=== PATIENT | male | born 1970 | race Caucasian/White ===

== ENCOUNTER 2017-05-27 09:54 | Observation (INO) ==
[2017-05-27 10:14] LABS: Basophils % 0.4 %; Eosinophils # 0.1 K/mcL (0.0-0.6); Hematocrit 44.5 % (37.5-50.1); Immature Granulocytes % 0.3 % (0-4); Lymphocytes # 1.9 K/mcL (0.6-4.6); Lymphocytes % 24.5 %; Mean Corpuscular HGB Conc 33.7 g/dL (31.6-35.5); Mean Corpuscular Hemoglobin 29.4 pg (28.0-33.3); Mean Corpuscular Volume 87.1 fL (83.0-100.0); Mean Platelet Volume 9.8 fL (9.4-12.4); Monocytes # 0.5 K/mcL (0.0-1.3); Monocytes % 6.6 %; Neutrophils # 5.3 K/mcL (1.6-8.9); Platelet Count 234 K/mcL (140-400); Red Blood Count 5.11 M/mcL (4.19-5.50); Red Cell Distribution Width 13.2 % (11.5-14.5); Segmented Neutrophils % 67.2 %
[2017-05-27 10:24] LABS: Prothrombin Time 10.9 Seconds (9.4-12.1)
[2017-05-27 10:27] LABS: Activated Partial Thrombo Time 30.9 Seconds (26.0-36.0)
[2017-05-27 10:28] LABS: BUN/Creatinine Ratio 10 (6-26); Blood Urea Nitrogen 9 mg/dL (6-20); Carbon Dioxide 26 mEq/L (23-29); Chloride 109 mEq/L (98-107); Glucose 111 mg/dL (70-105); Osmolality,Calculated 285 (280-300); Potassium 3.7 mEq/L (3.5-5.1); Sodium 138 mEq/L (136-145); eGFR For African Americans > 60 (> 60); eGFR For Non-African Americans > 60 (> 60)
[2017-05-27] MEDS ORDERED: Aspirin 81 MG TAB.CHEW PO ONE (10:29)
[2017-05-27] MEDS ORDERED: Nitroglycerin 0.4 MG TAB.SUBL SL PRN (11:04)
--- NOTE | 2017-05-27 11:16 | Emergency Department Note ---
Disposition Clinical Impression: Chest pain Qualifiers: Chest pain type: other chest pain Qualified Code(s): R07.89 - Other chest pain Disposition: Admitted As Inpatient Condition: Good Chest Pain HPI - General Chief Complaint: ED Chest Pain Stated Complaint: CP Time Seen by Provider: 05/27/17 10:00 Source: patient Mode of arrival: private vehicle Limitations: no limitations Vital Signs Reviewed: Yes Nursing Notes Reviewed: Yes - History of Present Illness HPI Narrative: 46-year-old male history of hypertension, prior left heart catheterization in 2011 without stent placement who presents to the ER due to chest pain. Patient reports he has had intermittent chest pain for the last 2 weeks worse with exertion. Also states she has been short of breath during that time. He reports today the pain intensified even at rest. He states he has had pain that goes into his back as well as up into his jaw and left arm. No history of DVT or PE. No history of [place], stent. No other complaints. Pt complaint: chest pain Onset (ago): day(s) Duration: intermittent Onset: during exertion Pain Location: left chest Severity: severe Severity scale (1-10): 8 Quality: sharp Pain Radiation: LUE, neck Improves with: rest Worsens with: exertion Associated symptoms: Reports: nausea, dyspnea. Denies: vomiting Treatments prior to arrival chest pain: none - Related Data On Oral Contraceptives: No Home Medications Medication Instructions Recorded Confirmed Metoprolol [Lopressor] 25 mg PO BID 04/16/16 05/27/17 Aspirin Enteric Coated [Aspirin EC] 81 mg PO DAILY 05/27/17 05/27/17 Ibuprofen [Motrin] 800 mg PO Q8H PRN 05/27/17 05/27/17 Tizanidine HCl [Zanaflex] 4 mg PO BID 05/27/17 05/27/17 Previous Rx's Medication Instructions Recorded Atorvastatin Calcium [Lipitor] 20 mg PO HS #30 tablet 05/28/17 Varenicline Tartrate [Chantix 1 each PO AD #1 dosepack 05/28/17 Starting Month MAC] Allergies Allergy/AdvReac Type Severity Reaction Status Date / Time morphine AdvReac Nausea Verified 05/27/17 09:56 naproxen AdvReac Nausea Verified 05/27/17 09:56 All systems ED: reviewed and negative except as stated. Cardiovascular: Reports: chest pain, dyspnea on exertion Respiratory: Reports: dyspnea. Denies: cough Gastrointestinal: Reports: nausea. Denies: abdominal pain, vomiting, diarrhea Musculoskeletal: Reports: back pain, neck pain Chest Pain PMH - Past Medical History Medical history: Reports: asthma, coronary artery disease, hypertension, myocardial infarction, other Psychiatric history: Reports: anxiety - Social History Smoking Status: Current every day smoker Alcohol use: Reports: none Drug use: Reports: none Physical Exam - General Limitations: no limitations General appearance: alert, in no apparent distress - Head Head exam: atraumatic, normocephalic - Eye Eye exam: Present: normal appearance - ENT ENT exam: normal exam - Neck Neck exam: Present: normal inspection, full ROM - Chest Chest inspection: Present: normal inspection, symmetric chest wall rise - Respiratory Respiratory exam: Present: normal lung sounds bilaterally - Cardiovascular Cardiovascular exam: Present: regular rate, normal rhythm, normal heart sounds - Abdominal Exam Abdominal exam: Present: soft, Non-Tender. Absent: tenderness - Extremities Exam Extremities exam: Present: normal inspection, full ROM - Expanded Upper Extremity Exam Shoulder exam: Present: normal inspection, full ROM Arm exam: Present: normal inspection, full ROM Elbow exam: Present: normal inspection, full ROM Forearm/Wrist exam: Present: normal inspection, full ROM Hand exam: Present: normal inspection, full ROM - Expanded Lower Extremity Exam Hip/Pelvis exam: Present: normal inspection, full ROM Upper leg exam: Present: normal inspection, full ROM Knee exam: Present: normal inspection, full ROM Lower leg exam: Present: normal inspection, full ROM Ankle exam: Present: normal inspection, full ROM Foot/toe exam: Present: normal inspection, full ROM - Neurological Exam Neurological exam: Present: alert, other (GCS 15. Nonfocal.) - Skin Skin exam: Present: warm, dry, intact Course Course Narrative: Patient seen and examined. Vitals reviewed. We will obtain EKG, chest x-ray and labs including troponin. Aspirin and nitroglycerin ordered. Vital Signs Temperature 97.9 F 05/27/17 09:56 Pulse Rate 76 05/27/17 09:56 Respiratory Rate 18 05/27/17 09:56 Blood Pressure 178/93 05/27/17 09:56 O2 Sat by Pulse Oximetry 99 05/27/17 09:56 Temperature 98.1 F 05/28/17 12:21 Pulse Rate 73 05/28/17 12:21 Respiratory Rate 17 05/28/17 12:21 Blood Pressure 163/93 05/28/17 12:21 O2 Sat by Pulse Oximetry 97 05/28/17 12:21 Oxygen Delivery Oxygen Delivery Room Air Chest Pain - MDM Narrative Medical decision making narrative: 46-year-old male presents to the ER due to chest pain. Prior history of left heart catheterization without stent placed. EKG is nonischemic. Chest x-ray unremarkable. Initial troponin is within normal limits. He is describing exertional dyspnea. He feels better after nitroglycerin. Patient admitted the hospitalist service for chest pain rule out. - Lab Data Lab results reviewed: Yes I reviewed the patient's lab results. Result diagrams: 05/28/17 00:24 05/28/17 00:24 Lab Results 05/27/17 05/27/17 05/27/17 Range/Units 10:08 10:08 10:08 WBC 7.8 (4.3-11.1) K/mcL RBC 5.11 (4.19-5.50) M/mcL Hgb 15.0 (12.9-16.9) g/dL Hct 44.5 (37.5-50.1) % MCV 87.1 (83.0-100.0) fL MCH 29.4 (28.0-33.3) pg MCHC 33.7 (31.6-35.5) g/dL RDW 13.2 (11.5-14.5) % Plt Count 234 (140-400) K/mcL MPV 9.8 (9.4-12.4) fL Immature Gran % 0.3 (0-4) % Seg Neutrophils % 67.2 % Lymphocytes % 24.5 % Monocytes % 6.6 % Eosinophils % 1.0 % Basophils % 0.4 % Neutrophils # 5.3 (1.6-8.9) K/mcL Lymphocytes # 1.9 (0.6-4.6) K/mcL Monocytes # 0.5 (0.0-1.3) K/mcL Eosinophils # 0.1 (0.0-0.6) K/mcL Basophils # 0.0 (0.0-0.2) K/mcL PT 10.9 (9.4-12.1) Seconds INR 1.0 APTT 30.9 (26.0-36.0) Seconds Sodium (136-145) mEq/L Potassium (3.5-5.1) mEq/L Chloride (98-107) mEq/L Carbon Dioxide (23-29) mEq/L BUN (6-20) mg/dL Creatinine (0.70-1.30) mg/dL Est GFR ( Amer) (> 60) Est GFR (Non-Af Amer) (> 60) BUN/Creatinine Ratio (6-26) Glucose (70-105) mg/dL Calculated Osmolality (280-300) Calcium (8.6-10.3) mg/dL Troponin I (< 0.04) ng/mL B-Natriuretic Peptide 26 (Less than 100) pg/mL 05/27/17 05/27/17 Range/Units 10:08 10:08 WBC (4.3-11.1) K/mcL RBC (4.19-5.50) M/mcL Hgb (12.9-16.9) g/dL Hct (37.5-50.1) % MCV (83.0-100.0) fL MCH (28.0-33.3) pg MCHC (31.6-35.5) g/dL RDW (11.5-14.5) % Plt Count (140-400) K/mcL MPV (9.4-12.4) fL Immature Gran % (0-4) % Seg Neutrophils % % Lymphocytes % % Monocytes % % Eosinophils % % Basophils % % Neutrophils # (1.6-8.9) K/mcL Lymphocytes # (0.6-4.6) K/mcL Monocytes # (0.0-1.3) K/mcL Eosinophils # (0.0-0.6) K/mcL Basophils # (0.0-0.2) K/mcL PT (9.4-12.1) Seconds INR APTT (26.0-36.0) Seconds Sodium 138 (136-145) mEq/L Potassium 3.7 (3.5-5.1) mEq/L Chloride 109 H (98-107) mEq/L Carbon Dioxide 26 (23-29) mEq/L BUN 9 (6-20) mg/dL Creatinine 0.91 (0.70-1.30) mg/dL Est GFR ( Amer) > 60 (> 60) Est GFR (Non-Af Amer) > 60 (> 60) BUN/Creatinine Ratio 10 (6-26) Glucose 111 H (70-105) mg/dL Calculated Osmolality 285 (280-300) Calcium 9.0 (8.6-10.3) mg/dL Troponin I < 0.03 (< 0.04) ng/mL B-Natriuretic Peptide (Less than 100) pg/mL - Radiology Data Radiology results reviewed: Yes I reviewed the patient's radiology results. Chest X-Ray 05/27/17 10:00 IMPRESSION: No acute cardiopulmonary process D/ / 05/27/2017 10:47:32 Sha Bingham MD / bin Interpreting Provider: Sha Bingham MD - EKG Data EKG attestation: Yes I reviewed and interpreted this EKG. EKG results narrative: EKG demonstrates sinus rhythm with rate of 60 bpm. Normal axis. Normal intervals. Normal R-wave progression. No gross ST elevations or depressions. No acute ischemic findings. No significant changes from previous EKG dated . Heart Score - Score History: Moderately Suspicious EKG: Normal Age: 45-65 Risk Factors: 1-2 risk factors Troponin: Less than normal limit HEART Score Total: 3 S.B.A.R. - S.B.A.R. Situation: Demographics, MOA Background: Presenting Complaint, Relevant PMH, Meds, & Allergies Assessment: Vital Signs, Course and respsone to treatment, Exam Concerns, Patient/Family Expectation, Pertinant Lab Results Recommendation: Barrier(s) to disposition, Recommendation based on pending studies, treatments, or consults S.B.A.R. Report Given to: Dr. Leiva S.B.A.RRenata Repor Time: 13:37 Attestation Statement - Attestation Attestation: I examined this patient and my medical decision-making was reviewed with the Resident Physician, Dr. Tejada. I agree with the documented findings, disposition and treatment plan as described except to the extent set forth below. Pt is a 46 yo wm, with hx HTN, with prior LHC without PCI, who presents with c/ o intermittent CP, L sided radiating through to his back/neck/jaw without other sxs x 2 weeks intermittently, seems provoked by exertion. I agree with pt's PE findings. Elevated BP on arrival. Pt given ASA/nitro. EKG NSR with no ischemia. CXR wnl. Labs, including trop neg. Will admit for further evaluation for CP, elev BP.
[2017-05-27] MEDS ORDERED: Naloxone 0.4 MG/ML INJ IVP PRN (15:53)
[2017-05-27] MEDS ORDERED: Ondansetron 4 MG/2 ML VIAL IVP PRN (15:53)
[2017-05-27] MEDS ORDERED: *HR* HYDROcodone/Acet 5/325 mg TABLET PO PRN (15:53)
[2017-05-27] MEDS ORDERED: Acetaminophen 325 MG TABLET PO PRN (15:53)
--- NOTE | 2017-05-27 16:03 | Internal Med History&Physical ---
<John Becker - Last Filed: 05/27/17 16:57> Date of Encounter: 05/27/17 Time of Encounter: 15:00 Assessment and Plan (1) Chest pain Current visit: Yes Status: Acute Acute on chronic chest pain that pt. states has been occurring for the past 3 weeks and became much worse this morning. Pain was accompanied by shortness of breath and feelings of presyncope. Patient states chest pain was located under left pectoral with radiation to left shoulder, arm, back, neck, and jaw. Patient states he was given 1 nitroglycerin in the ED which helped. Reports chest pain with and without exertion. Denies history of DVT or PE. Patient is currently smoking 1 pack per day. Otherwise factors include hypertension, CAD, and previous NC. Initial troponin <0.03. Will trend x2. Echocardiogram ordered. Continuous cardiac telemetry. NPO at midnight for a.m. nuclear pharm stress test. Supplemental O2 w/titration and SpO2 monitoring PRN. Nitroglycerin PRN. Continue pts. Metoprolol and aspirin therapy. We will add Lipitor 40 mg now and continue 20 mg Lipitor tomorrow at bedtime. Will consider cardiology consult if troponin/echo/stress test results abnormal. Lipid panel in a.m. labs. Pt. discussed w/Dr. Leiva who agrees w/plan of care. Pt. is high risk for cardiac event based on previous NC, current sx, hx, and risk factors. Observation. Qualifiers: Chest pain type: other chest pain Qualified Code(s): R07.89 - Other chest pain; R07.8 - Other chest pain (2) CAD (coronary artery disease) Current visit: Yes Status: Chronic Hx of chronic CAD w/previous NC in 2011 and angioplasty w/o stent placement. Will continue pts. metoprolol and aspirin therapy. Continuous cardiac telemetry. Lipid panel in a.m. labs. A1c in a.m. labs. Qualifiers: Coronary Disease-Associated Artery/Lesion type: [place] artery [place] vs. transplanted heart: [place] heart Associated angina: angina presence unspecified Qualified Code(s): I25.10 - Atherosclerotic heart disease of [place] coronary artery without angina pectoris (3) HTN (hypertension) Current visit: Yes Status: Chronic Hx of chronic HTN. Monitor pt. and VS. Continue pts. metoprolol. Qualifiers: Hypertension type: essential hypertension Qualified Code(s): I10 - Essential (primary) hypertension (4) Tobacco abuse Current visit: Yes Status: Chronic Hx of chronic tobacco abuse. Pt. reports smoking 1 PPD. Pt. counseled on dangers of tobacco abuse on cardiac sx. Pt. not ready to quit at this time. Denies need for nicotine patch. (5) Previous myocardial infarction older than 8 weeks Current visit: Yes Status: Resolved Hx of previous NC in 2012 w/angioplasty and no stent placement. Pt. reports there were two blockages found but they were not severe enough to stent. Continuous cardiac telemetry. Continue metoprolol and aspirin therapy. (6) DVT prophylaxis Current visit: Yes Status: Acute Lovenox 40 mg 0600 daily for DVT prophylaxis. Monitor pt. for signs of bleeding. Internal Medicine - H&P: HPI Chief complaint: Chest pain Admitted From: Emergency Dept Plans for Post Hospital Care: Home History of present illness: Mr. Kraft is a 46 year old male with medical hx of asthma, CAD, HTN, and previous myocardial infarction in 2011 resulting in left heart catheterization without stent placement presents from the ED with chief complaint of chest pain for the past 3 weeks. Patient states pain became much worse this morning and was accompanied by SOB and presyncope. Patient states pain was centralized under the left pectoral with radiation to the left shoulder, arm, back, neck, jaw. Pt. reports hx of chest pain w/similar sx. Reports two blockages found in 2011 but were not severe enough for stents. CP occurs w/wo exertion. Last reported stress test in 2011. Pt. given 1 nitro which he states helped w/pain. Pt. denies numbness, cough, fever, chills, nausea, vomiting, changes in vision, headache, palpitations, abdominal pain, diarrhea, constipation, dizziness, or syncope. Past Med Surg Social Fam HX - Past Medical History Source: patient, old records reviewed Medical history: asthma, coronary artery disease, hypertension, myocardial infarction (2012 w/angioplasty but no stent placement), other Psychiatric history: anxiety - Social History Smoking Status: Current every day smoker Packs per day: 1 PPD Smokeless Tobacco Status: No Alcohol use: none Drug use: none Current living situation: Home, With Family Activity Level: Independent ambulation Recent Out of Country Travel Within the Last 8 Weeks: No Exposure or Possible Exposure to Illness During Travel: No - Family History Father Race: Family Member Ethnicity: Non- Age at : 63 Cause of : NC Hx Family Cardiac Disorders: Yes (NC, CAD) Mother Race: Family Member Ethnicity: Non- Living Status: Still Living Hx Family Cardiac Disorders: Yes (NC x2, CAD) Sister Race: Family Member Ethnicity: Non- Living Status: Still Living Hx Family Medical Disorders: No Grandfather Race: Family Member Ethnicity: Non- Living Status: Hx Family Endocrine Disorder: Yes (DM) Internal Medicine - H&P: Meds Metoprolol [Lopressor] 25 mg PO BID 04/16/16 [History] Aspirin Enteric Coated [Aspirin EC] 81 mg PO DAILY 05/27/17 [History] Ibuprofen [Motrin] 800 mg PO Q8H PRN 05/27/17 [History] Tizanidine HCl [Zanaflex] 4 mg PO BID 05/27/17 [History] 3 Allergy/AdvReac Type Severity Reaction Status Date / Time morphine AdvReac Nausea Verified 05/27/17 09:56 naproxen AdvReac Nausea Verified 05/27/17 09:56 All Systems PM: A 10-system review of systems was performed and is negative for pertinent findings except as documented above in the HPI. - Constitutional Constitutional: no chills, no fever(s), no night sweats - EENT Eyes: no change in vision, no discharge, no pain, no photophobia Ears: no ear discharge, no ear pain, no tinnitus Nose, mouth and throat: no dysphagia, no nasal discharge, no neck pain, no sore throat - Breasts Breasts: as per HPI - Cardiovascular Cardiovascular ROS IM: as per HPI, chest pain, dyspnea, dyspnea on exertion, other (Pre-syncope), no diaphoresis, no lightheadedness, no palpitations, no syncope - Respiratory Respiratory: as per HPI, dyspnea, dyspnea on exertion, no cough, no wheezing, no excessive phlegm production - Gastrointestinal Gastrointestinal: no abdominal pain, no diarrhea, no hematemesis, no hematochezia, no melena, no nausea, no vomiting - Genitourinary Genitourinary ROS male: as per HPI - Musculoskeletal Musculoskeletal ROS IM: no numbness, no tingling - Integumentary Integumentary IM: no rash, no unusual bruising - Neurological Neurological ROS: no confusion, no convulsions, no focal weakness, no numbness, no tingling, no tremor(s) - Psychiatric Psychiatric: as per HPI - Endocrine Endocrine IM: as per HPI - Hematologic/Lymphatic Hematologic/Lymphatic: no easy bruising - Allergic/Immunologic Allergic/Immunologic: as per HPI - Constitutional Vitals: Temp Pulse Resp BP Pulse Ox 99.1 F 70 16 123/79 96 05/27/17 15:02 05/27/17 15:02 05/27/17 15:02 05/27/17 15:02 05/27/17 15:02 General appearance: Present: cooperative, A&O X 3, pleasant, no acute distress, answers questions appropriately - Head Head exam: Present: normal inspection - Eye Eye exam: Present: PERRL, conjuntiva pink, sclera anicteric Pupils: Present: PERRL - ENT ENT exam: Present: normal exam - Neck Neck exam general surgery: Present: normal inspection, supple, trachea midline. Absent: lymphadenopathy - Respiratory Respiratory exam: Present: CTAB. Absent: accessory muscle use, rales, rhonchi, wheezes - Cardiovascular Cardiovascular exam: Present: RRR, +S1, +S2. Absent: diastolic murmur, gallop, rubs, systolic murmur - GI/Abdominal GI/Abdominal exam: Present: normal bowel sounds, soft, no peritoneal signs. Absent: distended, tenderness - Rectal Rectal exam: Present: deferred - Additional comments: exam deferred. - Extremities Exam Extremities exam: Present: warm, radial pulses palpable and symmetrical. Absent : calf tenderness, cyanotic, pedal edema - Back Exam Back exam: Present: normal inspection - Neurological Exam Neurological exam: Present: CN II-XII intact, oriented X3, no focal deficits. Absent: pronater drift, facial droop, speech deficit - Psychiatric Psychiatric exam: Present: normal affect, normal mood - Skin Skin exam: Present: dry, intact Internal Med - H&P Results - Labs CBC & Chem 7: 05/27/17 10:08 05/27/17 10:08 - EKG Data EKG shows normal: sinus rhythm - EKG Data Prior EKG available for review: yes EKG comments: 05/27/17 16:16 EKG dated 04/11/16 shows sinus rhythm. EKG dated 05/27/17 shows sinus rhythm with minimal voltage criteria for LVH ( consider normal variant). Borderline ECG. - Diagnostic Studies Chest x-ray Additional comments: Impressions Chest X-Ray 05/27/17 10:00 IMPRESSION: No acute cardiopulmonary process D/ / 05/27/2017 10:47:32 Sha Bingham MD / bin Interpreting Provider: Sha Bingham MD <Boris Leiva - Last Filed: 05/27/17 19:26> Date of Encounter: 05/27/17 Time of Encounter: 17:45 - Cardiovascular Cardiovascular ROS IM: chest pain, dyspnea, dyspnea on exertion - Respiratory Respiratory: no cough, no chest congestion - Constitutional Vitals: Temp Pulse Resp BP Pulse Ox 99.1 F 70 16 123/79 96 05/27/17 15:02 05/27/17 15:02 05/27/17 15:02 05/27/17 15:02 05/27/17 15:30 General appearance: Present: cooperative, A&O X 3, pleasant Exam: currently chest pain free - Eye Eye exam: Present: PERRL. Absent: scleral icterus - ENT ENT exam: Present: mucous membranes moist, normal exam, normal oropharynx - Neck Neck exam general surgery: Present: normal inspection, supple. Absent: tenderness - Respiratory Respiratory exam: Present: CTAB. Absent: rales, rhonchi, wheezes - Cardiovascular Cardiovascular exam: Present: RRR, +S1, +S2 - GI/Abdominal GI/Abdominal exam: Present: normal bowel sounds, soft. Absent: tenderness - Extremities Exam Extremities exam: Present: full ROM. Absent: calf tenderness - Back Exam Back exam: Present: normal inspection. Absent: CVA tenderness (L), CVA tenderness (R) - Neurological Exam Neurological exam: Present: alert, oriented X3, no focal deficits - Skin Skin exam: Present: dry, warm. Absent: rash Internal Med - H&P Results - Labs CBC & Chem 7: 05/27/17 10:08 05/27/17 10:08 Labs: Cardiac Enzymes 05/27/17 Range/Units 17:06 Troponin I < 0.03 (< 0.04) ng/mL - EKG Data -: EKG Interpreted by Myself EKG shows normal: sinus rhythm (no acute changes) - Diagnostic Studies Chest x-ray Status: image reviewed by me (negative) - Attending Attestation I discussed the patient [place], PMH, ROS, lab data, and exam findings with Hong Whitfield CNP. I then saw and examined patient independently as well. Patient is currently chest pain free. He has extensive family history of CAD and personal history of CAD. Despite above, he continues to smoke. Patient needs cardiac work-up as detailed above. I counseled patient at length on the need to quit smoking. Other than my comments above noted exam findings, I agree with Hong's assessment and plan.
[2017-05-27] MEDS: tiZANidine 4 MG TABLET PO SCH (22:02)
[2017-05-28 00:59] LABS: Basophils % 0.3 %; Eosinophils # 0.1 K/mcL (0.0-0.6); Hematocrit 42.2 % (37.5-50.1); Hemoglobin 14.2 g/dL (12.9-16.9); Immature Granulocytes % 0.4 % (0-4); Lymphocytes % 28.4 %; Mean Corpuscular HGB Conc 33.6 g/dL (31.6-35.5); Mean Corpuscular Hemoglobin 29.6 pg (28.0-33.3); Mean Corpuscular Volume 87.9 fL (83.0-100.0); Monocytes # 0.6 K/mcL (0.0-1.3); Monocytes % 5.9 %; Neutrophils # 6.7 K/mcL (1.6-8.9); Platelet Count 220 K/mcL (140-400); Red Cell Distribution Width 13.3 % (11.5-14.5)
[2017-05-28 01:04] LABS: INR 1.1; Prothrombin Time 11.7 Seconds (9.4-12.1)
[2017-05-28 01:07] LABS: Activated Partial Thrombo Time 30.2 Seconds (26.0-36.0)
[2017-05-28 01:14] LABS: Hemoglobin A1C 5.5 %
[2017-05-28 01:22] LABS: Alanine Aminotransferase 13 Units/L (7-52); Albumin 3.6 g/dL (3.5-5.7); Albumin/Globulin Ratio 1.8 (1.1-2.2); Alkaline Phosphatase 58 Units/L (34-104); Aspartate Amino Transferase 11 Units/L (13-39); BUN/Creatinine Ratio 11 (6-26); Bilirubin,Total 0.2 mg/dL (0.3-1.0); Blood Urea Nitrogen 10 mg/dL (6-20); Calcium 8.8 mg/dL (8.6-10.3); Carbon Dioxide 25 mEq/L (23-29); Chloride 110 mEq/L (98-107); Chol/HDL Ratio 4.6 (0-4.9); Cholesterol 152 mg/dL (< 200); Glucose 112 mg/dL (70-105); HDL Cholesterol 33 mg/dL (40-59); LDL Cholesterol,Calculated 101 mg/dL (0-99); Magnesium 2.1 mg/dL (1.6-2.6); Osmolality,Calculated 290 (280-300); Potassium 3.6 mEq/L (3.5-5.1); Sodium 140 mEq/L (136-145); Total Protein 5.6 g/dL (6.4-8.9); Triglycerides 88 mg/dL (< 150); eGFR For African Americans > 60 (> 60); eGFR For Non-African Americans > 60 (> 60)
[2017-05-28] MEDS ORDERED: *HR* Enoxaparin 40 MG/0.4 ML SYRINGE SQ SCH (06:00)
[2017-05-28] MEDS ORDERED: Regadenoson 0.4 MG/5 ML SYRINGE IVP ONE (06:15)
[2017-05-28] MEDS: tiZANidine 4 MG TABLET PO SCH (07:40)
[2017-05-28] MEDS ORDERED: Aspirin Enteric Coated 81 MG Tablet PO SCH (09:00)
[2017-05-28 12:22] VITALS: BP 163/93
--- NOTE | 2017-05-28 13:57 | Discharge Summary ---
Date of Encounter: 05/28/17 Time of Encounter: 10:50 - Discharge Diagnosis (1) Chest pain Priority: Primary Status: Acute Comments: Patient reports intermittent chest pain for the last month which became worse prior to arrival. Patient reports shortness of breath and dizziness with the pain. He is in left chest with radiation to left shoulder, arm, back, neck. Patient states he has had the same pain in the past, however not this bad and without radiation. He reports he was relieved with nitroglycerin in the emergency department, he denies any aggravating factors. There is no relation to food or exertion. He has multiple risk factors including smoking, hypertension, prior AL, and coronary artery disease. Troponins were negative 3. Lipid panel was within normal limits, stress test was negative for infarct or ischemia with a gated EF of 70%. Chest x-ray was negative. Echocardiogram with an ejection fraction of 65%, normal LV diastolic function, no significant valvular dysfunction and normal wall segment motion. This is most likely stable angina, patient recommended to follow up with cardiology and modify risk factors. He agreed to smoking cessation and would like a prescription for Chantix on discharge. 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 He was agreeable. Qualifiers: Chest pain type: other chest pain Qualified Code(s): R07.89 - Other chest pain; R07.8 - Other chest pain (2) CAD (coronary artery disease) Priority: Secondary Status: Chronic Comments: Patient denies chest pain since prior to arrival. Patient with CAD and previous AL with angioplasty. There is no intervention. This was all done outside facility. Continue beta abraham and aspirin. Lipid panel within normal limits, LDL elevated, HDL low. A1c is 5.5%. Follow-up with cardiology after discharge. Qualifiers: Coronary Disease-Associated Artery/Lesion type: [place] artery [place] vs. transplanted heart: [place] heart Associated angina: angina presence unspecified Qualified Code(s): I25.10 - Atherosclerotic heart disease of [place] coronary artery without angina pectoris (3) HTN (hypertension) Priority: Secondary Status: Chronic Comments: Blood pressures been well controlled. Continue home medications. Qualifiers: Hypertension type: essential hypertension Qualified Code(s): I10 - Essential (primary) hypertension (4) Previous myocardial infarction older than 8 weeks Priority: Secondary Status: Resolved Comments: History of prior AL in 2006. 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 He reports 2 blockages. Continue metoprolol and aspirin. He denies chest pain since arrival. (5) Tobacco abuse Priority: Secondary Status: Chronic Comments: Smoking cessation education completed. Patient states that he is ready to stop smoking would like a prescription for Chantix and discharge. (6) DVT prophylaxis Priority: Secondary Status: Acute Comments: Lovenox subcutaneous. - Discharge Medications Prescriptions: Atorvastatin Calcium [Lipitor] 20 mg PO HS #30 tablet Home Medications: Metoprolol [Lopressor] 25 mg PO BID 04/16/16 [History] Aspirin Enteric Coated [Aspirin EC] 81 mg PO DAILY 05/27/17 [History] Ibuprofen [Motrin] 800 mg PO Q8H PRN 05/27/17 [History] Tizanidine HCl [Zanaflex] 4 mg PO BID 05/27/17 [History] Atorvastatin Calcium [Lipitor] 20 mg PO HS #30 tablet 05/28/17 [Rx] Varenicline Tartrate [Chantix Starting Month ] 1 each PO AD #1 dosepack 05/28 [Rx] Allergies/Adverse Reactions: 3 Allergy/AdvReac Type Severity Reaction Status Date / Time morphine AdvReac Nausea Verified 05/27/17 09:56 naproxen AdvReac Nausea Verified 05/27/17 09:56 Procedures/tests Complete & Pending: Procedures Performed prior 72 hours Category Date Time Status NM madalyn perf SPECT multi [NM] Routine Exams 05/28/17 06:09 Taken EV echocardiogram Routine Y 05/27/17 16:28 Completed SP pharm nuclear stress Routine Y 05/28/17 12:00 Completed Date of admission: 05/27/17 14:01 Primary care physician: PCP NONE Discharging clinician: Yenni Lindo Anticipated date of discharge: 05/28/17 - Patient Status Disposition: Home, Self-Care Condition: Good Functional capacity at discharge: independent ambulation Overall status at discharge: patient is back to baseline - Discharge Instructions Follow Up With: Uriel Lomas MD [Non-Partnered Physician] - Additional Instructions: Please follow up with your PCP in the next 7-10 days for a recheck. Return to the ER as needed for any other problems or concerns or if your symptoms return or worsen. Take your medications as directed. Resume your medications Continue your diet and activities as tolerated. - Diet and Activity Activity: increase activity as tolerated Diet: advance to your usual diet Hospital course: Mr. Kraft is a 46 year old male Time spent discussing smoking cessation with patient: 3 to 10 minutes - Time Spent with Patient Total time spent providing and/or coordinating discharge services: Less than 30 minutes - Constitutional Vitals: Temp Pulse Resp BP Pulse Ox 98.1 F 73 17 163/93 97 05/28/17 12:21 05/28/17 12:21 05/28/17 12:21 05/28/17 12:21 05/28/17 12:21 General appearance: Present: cooperative, A&O X 3, pleasant, no acute distress, answers questions appropriately - Head Head exam: Present: atraumatic, normal inspection, normocephalic - Eye Eye exam: Present: normal appearance, conjuntiva pink, sclera anicteric - Neck Neck exam general surgery: Present: supple, trachea midline. Absent: lymphadenopathy, tenderness - Respiratory Respiratory exam: Present: CTAB. Absent: accessory muscle use, chest wall tenderness, rales, respiratory distress, rhonchi, wheezes - Cardiovascular Cardiovascular exam: Present: RRR, +S1, +S2. Absent: diastolic murmur, gallop, rubs, systolic murmur - GI/Abdominal GI/Abdominal exam: Present: normal bowel sounds, soft. Absent: distended, hepatomegaly, tenderness - Extremities Exam Extremities exam: Present: normal capillary refill, normal inspection, warm, radial pulses palpable and symmetrical. Absent: calf tenderness, cyanotic, pedal edema, tenderness - Neurological Exam Neurological exam: Present: alert, oriented X3, no focal deficits. Absent: altered, facial droop, speech deficit - Skin Skin exam: Present: dry, intact, normal color, warm. Absent: rash
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
== END 2017-05-28 16:19 | disposition home or self-care (01) ==
LOC: 3BNU 09:54 → EMEROO 09:54 → 3BNU 14:22
PROVIDERS: ADMIT Pediatrics; ATTEND Registered Nurse